=== PATIENT | male | born 1965 | race Caucasian/White ===

== ENCOUNTER → 2016-10-29 | Outpatient (CLI) | payer OTHER ==
--- NOTE | ~2016-10-29 | MR10 ---
[facility]. [facility] A Service of [facility] & [facility] RADIOLOGY TEXT RESULTS PATIENT: BOY CHANDLER LOCATION: [facility] : 67 UNIT #: [id number] AGE: [address]: Loreta Feliz MD SEX: M ORDER DR: [id number] [address] [id number] O MR#: [id number] Acc #: [id number] NAME: BOY CHANDLER : 1965 SEX: M STUDY DATE/TIME: 10/29/2016 9:14 UNIT: [facility] ROOM: STUDY DESCRIPTION: MR Ankle Wo Contrast Lt Attending Physician: Tami Feliz M.D. Referring Physician: Tami Feliz M.D. Ordering Physician: Tami Feliz M.D. Primary Care Physician: Raven Manley M.D. MRI CENTER REPORT This report is preliminary unless electronic signature is present. EXAM MRI of the left ankle HISTORY 51-year-old male complains of left ankle pain for several years, walks on outside of foot. History of left femur surgery. Evaluate for possible peroneal tendon tear and subtalar joint arthritis. COMPARISON Left foot and ankle films, 10/22/2016 FINDINGS Multiplanar multiecho imaging was performed of the left ankle utilizing a high field magnet and dedicated protocol. Examination demonstrates developing subtalar joint arthritis particularly along the posterior medial aspect of the posterior subtalar joint with a focus of subchondral edema along the posterior calcaneal facet asymmetric joint space narrowing and developing marginal osteophytes. No joint effusion within the subtalar joint. There is a small amount of ankle joint fluid. There is mild thickening of the proximal Achilles tendon which may represent hypoxic tendinopathy. No evidence of a tear. The peroneus longus tendon demonstrates a longitudinal split tear involving the retromalleolar and inframalleolar portion of the tendon. The tear extends all the way to the cuboidal tunnel. The tear is estimated at over 7.5 cm in length. The peroneus brevis tendon demonstrates mild tendinopathy but felt to be intact without significant tear. Medial flexor, anterior extensor tendons appear normal. Lateral ankle ligament complex appears intact. There is mild heterogeneity of the deep deltoid ligament which may represent the sequela of previous medial ankle sprain. [facility] A Service of [facility] RADIOLOGY TEXT RESULTS PATIENT: BOY CHANDLER LOCATION: [facility] : 67 UNIT #: [id number] AGE: [address]: Loreta Feliz MD SEX: M ORDER DR: Diffuse atrophy within the abductor digiti minimi muscle and the abductor hallus muscle. There is also mild atrophy of the flexor digitorum brevis. Generalized atrophy of the intrinsic musculature. Correlate for risk factors. IMPRESSION 1. 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 2. Small ankle effusion and mild nonspecific soft tissue swelling and edema lower extremity. 3. Longitudinal split tear of the peroneus longus tendon estimated at over 7.5 cm in length and involving the inframalleolar and retromalleolar aspect of the tendon. 4. Generalized atrophy of the intrinsic musculature of the foot most prominent involving the abductor hallus and abductor digiti minimi muscles. Dictated by... Peace Hogan M.D. THIS IS AN ELECTRONICALLY VERIFIED REPORT Peace Hogan M.D. at 10/31/2016 1:59 PM Jose TD: 10/29/2016 15:43 JOB #: [id number] MRI CENTER REPORT Page 1 of 1
== END | disposition home or self-care (01) ==
LOC: SMRI 08:09
DX: M25.572 Pain in left ankle and joints of left foot (principal); M19.072 Primary osteoarthritis, left ankle and foot; M25.472 Effusion, left ankle; M79.89 Other specified soft tissue disorders; S86.312A Strain of muscle(s) and tendon(s) of peroneal muscle group at lower leg level, left leg, initial encounter; M62.572 Muscle wasting and atrophy, not elsewhere classified, left ankle and foot
CPT/HCPCS: 73721